=== PATIENT | male | born 1990 | race Caucasian/White ===

== ENCOUNTER 2022-01-21 20:21 | Emergency (ER) | payer BC, SELFPAY ==
[2022-01-21 20:21] VITALS: BP 136/89; PULSE 116; RESP 17; TEMP 36.4; O2SAT 98; BMI 21.9
[2022-01-21] MEDS: HYDROcodone Bitartrate/Apap 5/325 Tablet PO (20:54)
--- NOTE | 2022-01-21 20:55 | RAD_ITS ---
EXAM: XR Right Hand Complete, 3 or More Views CLINICAL INDICATION: 31 years old, Male; Injury/Pain TECHNIQUE: Frontal, lateral and oblique views of the right hand. This report was created using [employer] report generation technology. COMPARISON: None. FINDINGS: Bones/joints: Unremarkable. No acute fracture. No subluxation. Normal alignment. Preservation of the joint space. No sclerotic or destructive changes observed. Soft tissues: Extensive edema in the soft tissues over the dorsum of the hand. No radiopaque foreign body. RAD/Hand Min 3 Views IMPRESSION: Extensive edema in the soft tissues over the dorsum of the hand. Electronically Signed: Wilber Chamberlain MD at 21:38 EDT ,
--- NOTE | 2022-01-21 22:06 | NURSING ---
pt left before md reevaluation. pt stated I've been here for 2 hours I'm not waiting anymore. Md updated
--- NOTE | 2022-01-21 23:54 | EX.ED.UPPERE ---
HPI History of Present Illness HPI Narrative: Patient presents with right hand pain that began today. Patient states he punched a door frame, a wall, and 1 other object. Pain and swelling is localized to the right hand over the fourth and fifth metacarpal areas. Patient denies any paresthesias or weakness. Patient describes his pain as aching. Patient states pain is worse with any movement of his fingers. Patient states pain radiates into his wrist. Patient denies any other injuries. Chief Complaint: Upper Extremity Injury Informant: patient Occured/Mechanism Mechanism/Context: Yes blunt trauma and Yes direct blow Onset/Context/Timing Onset: Today Context: Sudden Onset Timing: Continuous Quality of Pain: Aching Location: Right hand Worsened by: Movement Relieved by: Nothing Associated Symptoms Associated Symptoms: Negative for Parasthesia, Weakness and Loss of Funtion PFSH PFSH Medical History no medical history no medical history Home Medications NK 01/21/22 [History Last Taken Unknown] Allergy/AdvReac Type Severity Reaction Status Date / Time No Known Allergies Allergy Verified 01/21/22 20:23 no surgical history Social History Smoking Status: Current every day smoker tobacco type: cigarettes ROS ROS ED Constitutional Constitutional ED: Denies chills or fever(s) Eyes Eyes: Denies blurry vision or change in vision ENT ENT ED: Denies rhinorrhea or sore throat Cardiovascular Cardiovascular: Denies chest pain or palpitations Respiratory/Chest Respiratory/Chest: Denies cough or dyspnea Gastrointestinal Gastrointestinal: Denies nausea or vomiting Genitourinary Genitourinary ED: Denies dysuria or hematuria Musculoskeletal Musculoskeletal: Denies back pain or neck pain Integumentary Denies abscess or rash Neurologic Neurologic: Denies headache(s) or weakness Allergic/Immunologic Allergic/Immunologic ED: Denies mouth swelling or urticaria EXAM Physical Exam Const Vital Signs: 01/21/22 20:21 Temperature 97.5 F L Temperature Source Temporal Pulse Rate 116 H Respiratory Rate 17 Blood Pressure 136/89 H Blood Pressure Mean 104 Pulse Ox 98 Oxygen Delivery Method Room Air Positive well nourished and well developed General Appearance ED: well developed and NAD HEENT Reports moist mucous membranes Neck full ROM and supple Extremity Extremity Narrative: There is tenderness and edema over the third, fourth, and fifth metacarpals of the right hand. There is no obvious deformity noted. Range of motion was limited in all motions of the right hand and right wrist secondary to pain. Sensation was intact to light touch in the radial, median, and ulnar areas. Strength is 5/5 in the radial, median, and ulnar areas. Capillary refills less than 2 seconds in all digits. Radial pulses are equal bilaterally. Neuro oriented x3, CN's II-XII intact bilaterally, moves all extremities, no focal motor deficits and no sensory deficits noted Sensorium / Orientation: alert Psych mental status grossly normal MDM MDM MDM Narrative Medical decision making narrative: X-rays of the right hand were obtained. There are 3 views. On my interpretation, there is no acute fracture. There is no dislocation. There is moderate soft tissue swelling. Radiologist also interpreted the x-rays and agrees. Patient left prior to receiving his x-ray results. Patient did return and was advised of his results. Patient was given verbal instructions to follow-up with his primary care physician in 7 to 10 days. Patient was instructed to ice and elevate the right hand. Patient understood and was agreeable with the plan. All questions were answered. Radiography Diagnostic Testing: Clinical Impression(s) from Imaging Studies Hand X-Ray 01/21/22 20:55 IMPRESSION: Extensive edema in the soft tissues over the dorsum of the hand. Electronically Signed: Wilber Chamberlain MD at 21:38 EDT , Discharge Plan Triage Chief Complaint: Upper Extremity Injury ED Provider: Quinn Muniz Dx/Rx/DC Orders Clinical Impression: Contusion of right hand, initial encounter, Right wrist sprain Instructions: ED Hand Contusion Prescriptions: No Action NK RF: 0 Primary Care Provider: Care Physician,No Primary Referrals: Care Physician,No Primary [Primary Care Provider] - Disposition Disposition: Elopement Discharge Date/Time: 01/21/22 22:28
== END 2022-01-21 22:28 | disposition left against medical advice (07) ==
PROVIDERS: Emergency Provider Emergency Medicine; Visit Provider Emergency Medicine
DX: S60.221A Contusion of right hand, initial encounter (principal); F17.210 Nicotine dependence, cigarettes, uncomplicated; W20.8XXA Other cause of strike by thrown, projected or falling object, initial encounter; Y93.89 Activity, other specified; Y99.9 Unspecified external cause status; Y92.9 Unspecified place or not applicable; S63.501A Unspecified sprain of right wrist, initial encounter
CPT/HCPCS: 73130; 99283